=== PATIENT | female | born 1985 | race American Indian/Alaskan Native ===

== ENCOUNTER 2017-09-27 13:18 | Outpatient (CLI) | payer OTHER ==
--- NOTE | 2017-09-30 12:05 | Vascular Lab Report ---
Left Lower Extremity Venous Duplex Study: Reason for Exam: Acute embolism. Comments on the Right: A limited duplex study was done of the proximal veins of the right lower extremity. All veins visualized are freely compressible without evidence of internal echogenicity. Flow is spontaneous and phasic throughout. No evidence of acute or chronic thrombus is seen in any of the vessels visualized. Comments on the Left: All veins visualized are freely compressible without evidence of internal echogenicity. Flow is spontaneous and phasic throughout. No evidence of acute or chronic thrombus is seen in any of the vessels visualized. Impression: No evidence of acute or chronic deep venous thrombosis in the left lower extremity.
== END 2017-09-27 13:19 | disposition home or self-care (01) ==
LOC: VAS 13:18
PROVIDERS: ATTEND Internal Medicine
DX: I82.492 Acute embolism and thrombosis of other specified deep vein of left lower extremity (principal)